=== PATIENT | female | born 1945 | race Caucasian/White ===

== ENCOUNTER 2017-08-14 12:02 | Inpatient (IN) | payer OTHER ==
[~2017-08-14] VITALS: Ht 160 cm; Wt 82.8 kg
[~2017-08-14 12:02] MED LIST: ACAR25TA; FLUT100M7; FURO20TA; GLYB1.25; MONT4GRA; PRO1I
[2017-08-14] MEDS ORDERED: ONDANSETRON HCL 4 MG/2 ML VIAL IV ONE (12:30)
[2017-08-14] MEDS ORDERED: ASPirin 81 mg TAB PO ONE (12:30)
[2017-08-14] MEDS ORDERED: MORPHINE SULF INJ 2 MG/ML SYRINGE 1ML IV ONE (12:30)
[2017-08-14 13:19] LABS: Basophils # (auto) 0.1 uL; Eosinophils # (auto) 0.1 uL; Eosinophils % (auto) 1.3 % (0.0-7.0); Hematocrit 36.3 % (41.0-53.0); Hemoglobin 12.2 g/dL (13.5-17.5); Lymphocytes # (auto) 2.1 uL; Lymphocytes % (auto) 27.7 % (10.0-50.0); Mean Corpuscular Hgb Conc. 33.5 g/dL (32.0-36.0); Mean Corpuscular Volume 89.4 fL (80.0-100.0); Monocytes # (auto) 0.5 uL; Monocytes % (auto) 6.4 % (0.0-12.0); Neutrophils # (auto) 4.8 uL; Neutrophils % (auto) 63.6 % (37.0-80.0); Platelet Count (auto) 263 10^3/uL (140-450); Red Blood Cells 4.06 10^6/uL (4.5-5.90); Red Cell Distribution Width 13.1 % (11.8-14.3); White Blood Cell 7.6 10^3/uL (4.4-10.8)
[2017-08-14 13:35] LABS: INR 0.96 (0.9-1.15); Partial Thromboplastin Time 25.7 sec (23.78-33.04); Prothrombin Time 10.3 sec (9.27-12.13)
[2017-08-14 13:37] LABS: Alanine Aminotransferase 16 U/L (16-61); Albumin 3.6 g/dL (3.4-5.0); Alkaline Phosphatase 94 U/L (45-117); Anion Gap 10 (5-15); Aspartate Aminotransferase 8 U/L (15-37); BUN/Creatinine Ratio 19.6; Bilirubin, Total 0.4 mg/dL (0.2-1.0); Blood Urea Nitrogen 18 mg/dL (7-18); Calcium 8.9 mg/dL (8.5-10.1); Carbon Dioxide 25 mmol/L (21-32); Chloride 105 mmol/L (98-107); GFR African American 104 mL/min; GFR Non-African American 86 mL/min; Glucose 265 mg/dL (74-106); Magnesium 2.5 mg/dL (1.6-2.6); Potassium 3.8 mmol/L (3.5-5.1); Sodium 140 mmol/L (136-145); Total Protein 6.8 g/dL (6.4-8.2)
[2017-08-14] MEDS ORDERED: DEXTROSE (50%) 50ML SYRG IV PRN (14:30)
[2017-08-14] MEDS ORDERED: HYDROcodone-ACET 5/325MG TAB PO PRN (14:30)
[2017-08-14] MEDS ORDERED: ONDANSETRON HCL 4 MG/2 ML VIAL IV PRN (14:30)
[2017-08-14] MEDS: ACCU-CHEK COMFORT CURVE STRIP VI SCH ×2 (17:14→21:46)
[2017-08-14] MEDS: InsuLIN REG 1unit/0.01ml Soln (100units/ml) SC SCH ×2 (17:14→21:46)
[2017-08-14] MEDS: KETOROLAC TROMETH 30 MG/ML 1ML VIAL IV SCH (17:43)
[2017-08-14 20:29] LABS: Urine Bacteria FEW /hpf (None Seen); Urine Blood Negative /uL (Negative); Urine Specific Gravity 1.014 (1.001-1.035); Urine WBC 3 /hpf (0 - 5)
[2017-08-14 20:50] VITALS: BP 128/63
[2017-08-14] MEDS: GABAPENTIN 300 MG CAP PO SCH (21:46)
[2017-08-14 22:00] VITALS: BP 128/63
[2017-08-14] MEDS ORDERED: ATORVASTATIN 20 MG TAB PO SCH (22:00)
[2017-08-15] MEDS: KETOROLAC TROMETH 30 MG/ML 1ML VIAL IV SCH ×3 (00:08→11:31)
[2017-08-15] MEDS ORDERED: CITA10TA70 PO (02:30)
[2017-08-15] MEDS ORDERED: ROSU10TA16 PO (02:30)
[2017-08-15] MEDS ORDERED: CLOP75TA41 PO (02:30)
[2017-08-15] MEDS ORDERED: GABA300C10 PO (02:30)
[2017-08-15] MEDS ORDERED: ASPI81CH43 PO (02:30)
[2017-08-15] MEDS ORDERED: AMLO5TAB2 PO (02:30)
[2017-08-15] MEDS ORDERED: LEVO50TA7 PO (02:30)
[2017-08-15 05:00] VITALS: BP 136/63
[2017-08-15] MEDS: GABAPENTIN 300 MG CAP PO SCH ×2 (05:22→14:49)
[2017-08-15] MEDS ORDERED: LEVOTHYROXINE SODIUM 50 MCG TAB PO SCH (07:00)
[2017-08-15] MEDS: InsuLIN REG 1unit/0.01ml Soln (100units/ml) SC SCH ×2 (07:00→11:31)
[2017-08-15] MEDS: ACCU-CHEK COMFORT CURVE STRIP VI SCH ×2 (07:05→11:30)
[2017-08-15 07:20] LABS: Basophils # (auto) 0.1 uL; Basophils % (auto) 1.1 % (0.0-2.0); Eosinophils # (auto) 0.2 uL; Eosinophils % (auto) 2.6 % (0.0-7.0); Hematocrit 37.5 % (36.0-46.0); Hemoglobin 12.7 g/dL (12.2-16.2); Lymphocytes # (auto) 2.2 uL; Lymphocytes % (auto) 34.1 % (10.0-50.0); Mean Corpuscular Hemoglobin 30.7 pg (28.0-32.0); Mean Corpuscular Volume 90.5 fL (80.0-100.0); Monocytes # (auto) 0.5 uL; Monocytes % (auto) 7.6 % (0.0-12.0); Neutrophils # (auto) 3.5 uL; Neutrophils % (auto) 54.6 % (37.0-80.0); Nucleated Red Blood Cells % 0.1 %; Platelet Count (auto) 231 10^3/uL (140-450); Red Blood Cells 4.15 10^6/uL (4.0-5.20); White Blood Cell 6.3 10^3/uL (4.4-10.8)
[2017-08-15 07:37] LABS: Calcium 8.4 mg/dL (8.5-10.1); Chloride 106 mmol/L (98-107); Potassium 4.3 mmol/L (3.5-5.1); Sodium 144 mmol/L (136-145)
[2017-08-15 07:40] LABS: BUN/Creatinine Ratio 27.2; Blood Urea Nitrogen 22 mg/dL (7-18); GFR African American 90 mL/min; GFR Non-African American 74 mL/min; Glucose 117 mg/dL (74-106)
[2017-08-15 08:44] LABS: Anion Gap 11 (5-15); Carbon Dioxide 27 mmol/L (21-32)
[2017-08-15 09:00] VITALS: BP 125/54
[2017-08-15] MEDS ORDERED: ASPirin 81 mg TAB PO SCH (10:00)
[2017-08-15] MEDS ORDERED: CITALOPRAM HYDROBR 20 MG TAB PO SCH (10:00)
[2017-08-15] MEDS ORDERED: CLOPIDOGREL BISULFATE 75 MG TAB PO SCH (10:00)
[2017-08-15 13:00] VITALS: BP 125/56
[2017-08-15] MEDS ORDERED: IBUPROFEN 800 MG TAB PO ONE (15:15)
[2017-08-15 17:00] VITALS: BP 148/67
== END 2017-08-15 18:26 | disposition home health service (06) | DRG 206 ==
LOC: EDSEX 12:02 → EDBD 12:02 → ER 12:02 → OVERFLOW 12:03 → EAST 20:46
PROVIDERS: ADMIT Internal Medicine; ATTEND Internal Medicine
DX: M94.0 Chondrocostal junction syndrome [Tietze] (principal); I25.10 Atherosclerotic heart disease of native coronary artery without angina pectoris; I70.0 Atherosclerosis of aorta; E78.5 Hyperlipidemia, unspecified; E03.9 Hypothyroidism, unspecified; I10 Essential (primary) hypertension; J45.909 Unspecified asthma, uncomplicated; F32.9 Major depressive disorder, single episode, unspecified; F41.9 Anxiety disorder, unspecified; E11.9 Type 2 diabetes mellitus without complications; Z86.73 Personal history of transient ischemic attack (TIA), and cerebral infarction without residual deficits; Z88.0 Allergy status to penicillin; Z88.6 Allergy status to analgesic agent; Z83.3 Family history of diabetes mellitus; Z81.8 Family history of other mental and behavioral disorders; Z80.9 Family history of malignant neoplasm, unspecified; Z90.710 Acquired absence of both cervix and uterus; Z98.42 Cataract extraction status, left eye; Z90.89 Acquired absence of other organs; Z90.49 Acquired absence of other specified parts of digestive tract
CPT/HCPCS: 36415; 71045; 71101; 80048; 80053; 81001; 82962; 83036; 83735; 84443; 84484; 85025; 85610; 85730; 93005; 94761; 96374; 96375; J1815; J1885; J2405